=== PATIENT | male | born 1955 | race Caucasian/White ===

== ENCOUNTER 2018-07-30 10:10 | Inpatient (IN) ==
[2018-07-30] MEDS ORDERED: methylPREDNISolone SOD SUC 125 MG/2 ML VIAL IV STA (10:38)
[2018-07-30] MEDS ORDERED: FUROSEMIDE 100 MG/10 ML VIAL IV STA (10:38)
[2018-07-30] MEDS ORDERED: ONDANSETRON 4 MG/2 ML VIAL IV STA (10:38)
[2018-07-30] MEDS ORDERED: ALBUTEROL NEB SOLN 5 MG/ML 20 ML/BOTTLE RESP TX SCH (11:00)
[2018-07-30] MEDS: NITROGLYCERIN 2% OINT 1 INCH/GM PACK TOP STA ×2 (11:09→15:39)
[2018-07-30 11:12] LABS: Basophils % 0.4 % (0.0-0.8); Eosinophils % 0.3 % (0.00-10.9); Hemoglobin 11.1 GM/DL (14.0-18.0); Immature Granulocytes % 0.7 %; Immature Granulocytes Absolute 0.05 #; Lymphocytes # 0.6 10*3/uL (1.4-4.0); Mean Corpuscular HGB Conc 35.8 GM/DL (32-36); Mean Corpuscular Hemoglobin 37 PG (27-34); Mean Corpuscular Volume 103.3 FL (87-102); Monocytes # 0.4 10*3/uL (0.11-0.8); Monocytes % 4.9 % (1.7-12.7); Neutrophils % 84.7 % (38.7-73.9); Platelet Count 177 T/CUMM (130-400); Red Cell Distribution Width 16.8 % (9.3-17.3); White Blood Count 7.1 T/CUMM (4-12)
[2018-07-30 11:24] LABS: PT Patient Result 10.7 SECS
[2018-07-30 11:38] LABS: Alanine Aminotransferase 11 U/L (16-61); Albumin 2.4 G/DL (3.4-5.0); Alkaline Phosphatase 88 U/L (45-117); Aspartate Amino Transferase 41 U/L (0-37); Blood Urea Nitrogen 31 MG/DL (7-18); Calcium 8.3 MG/DL (8.5-10.1); Glucose 100 MG/DL (74-106); Osmolality,Calculated 263.1 MOS/KG (273-304); Potassium 3.6 MMOL/L (3.5-5.1); Sodium 128 MMOL/L (136-145); Total Protein 6.7 G/DL (6.4-8.3); Troponin I < 0.015 NG/ML (0.00-0.045)
[2018-07-30] MEDS ORDERED: ACETAMINOPHEN 325 MG TABLET PO PRN (12:25)
[2018-07-30] MEDS ORDERED: DOCUSATE SODIUM 100 MG CAPSULE PO PRN (12:25)
[2018-07-30] MEDS ORDERED: ONDANSETRON 4 MG/2 ML VIAL IV PRN (12:25)
[2018-07-30] MEDS ORDERED: diphenhydrAMINE CAP 25 MG CAPSULE PO PRN (12:25)
[2018-07-30] MEDS ORDERED: SODIUM CHLORIDE 0.9% 1,000 ML IV SCH (14:30)
[2018-07-30] MEDS ORDERED: INFLUENZA VIRUS VACCINE 0.5 ML SYRINGE IM ONE (15:18)
[2018-07-30 15:38] LABS: Ammonia 38 UMOL/L (11-32)
[2018-07-30] MEDS: FOLIC ACID INJ 1 MG in SYRINGE 1 EACH IV SCH (16:24)
[2018-07-30] MEDS: THIAMINE 200 MG/2 ML VIAL IV SCH (16:25)
[2018-07-30] MEDS: MULTIVITAMIN (CENTRUM) TABLET PO SCH (16:25)
[2018-07-30] MEDS: PANTOPRAZOLE 40 MG TABLET PO SCH (16:25)
[2018-07-30] MEDS: FUROSEMIDE 40 MG/4 ML VIAL IV SCH (18:02)
[2018-07-30 20:37] LABS: Apearance,Urine CLEAR (Clear); Bilirubin,Urine Negative (Negative); Blood, Urine Negative (Negative); Glucose,Urine (UA) Negative (Negative); Ketones,Urine Negative (Negative); Mucus,Urine Occasional /LPF (Occasional); Nitrite,Urine Negative (Negative); Protein,Urine Negative; RBC,Urine <1 /HPF (0-4); Urine Color Yellow (Yellow); Urine Specific Gravity 1.004 (1.001-1.035); Urine Urobilinogen < 2.0 EU/DL (0.2-1.0); WBC,Urine <1 /HPF (0-6)
[2018-07-30] MEDS: ENOXAPARIN 40 MG/0.4 ML SYRINGE SUBCUT SCH (21:34)
[2018-07-30 22:14] LABS: Barbiturates Screen,Urine Negative (Negative); Benzodiazepines Screen,Urine Negative (Negative); Cannabinoid Screen,Urine Negative (Negative); Opiate Screen,Urine Negative (Negative); Phencyclidine Screen,Urine Negative (Negative)
[2018-07-31] MEDS ORDERED: LORazepam 2 MG/1 ML VIAL IV ONE (03:15)
[2018-07-31] MEDS: FUROSEMIDE 40 MG/4 ML VIAL IV SCH ×3 (03:22→21:09)
[2018-07-31 05:43] LABS: Basophils % 0.2 % (0.0-0.8); Hematocrit 24.8 VOL% (42.0-52.0); Hemoglobin 8.5 GM/DL (14.0-18.0); Immature Granulocytes Absolute 0.13 #; Mean Corpuscular HGB Conc 34.3 GM/DL (32-36); Mean Corpuscular Hemoglobin 35 PG (27-34); Mean Corpuscular Volume 103.3 FL (87-102); Mean Platelet Volume 9.5 FL (9.6-12.0); Monocytes # 0.6 10*3/uL (0.11-0.8); Monocytes % 4.7 % (1.7-12.7); Neutrophils # 11.1 10*3/uL (1.4-7.4); Neutrophils % 86.1 % (38.7-73.9); Platelet Count 216 T/CUMM (130-400); White Blood Count 12.9 T/CUMM (4-12)
[2018-07-31 06:27] LABS: Albumin 2.5 G/DL (3.4-5.0); Bilirubin,Total 1.7 MG/DL (0.2-1.0); Calcium 8.5 MG/DL (8.5-10.1); Osmolality,Calculated 263.2 MOS/KG (273-304); Potassium 3.6 MMOL/L (3.5-5.1); Risk Ratio 2.67; Thyroid Stimulating Hormone 6.42 uIU/ml (0.358-3.74); Total Protein 6.7 G/DL (6.4-8.3); VLDL CHOLESTEROL 14.8 MG/DL
[2018-07-31 08:33] LABS: Free T4 (Free Thyroxine) 0.94 NG/DL (0.76-1.46)
[2018-07-31] MEDS: MULTIVITAMIN (CENTRUM) TABLET PO SCH (08:49)
[2018-07-31] MEDS: THIAMINE 200 MG/2 ML VIAL IV SCH (08:49)
[2018-07-31] MEDS: LACTULOSE 20 GM/30 ML UDCUP PO SCH (08:50)
[2018-07-31] MEDS: PANTOPRAZOLE 40 MG TABLET PO SCH ×2 (08:50→20:21)
[2018-07-31] MEDS: FOLIC ACID INJ 1 MG in SYRINGE 1 EACH IV SCH (09:46)
[2018-07-31 12:06] LABS: Hepatitis B Core IgM Quant 0.14 Index; Hepatitis B Core IgM Result Negative (Negative); Hepatitis B Surface Ag Quant 0.22 Index; Hepatitis B Surface Ag Result Negative (Negative); Hepatitis C Virus Ab Result Negative (Negative)
[2018-07-31] MEDS: BACITRACIN OINT 0.9 GM PACK TOP SCH (15:58)
[2018-07-31] MEDS ORDERED: FUROSEMIDE 20 MG/2 ML VIAL IV PRN (16:03)
[2018-07-31] MEDS ORDERED: SODIUM CHLORIDE 0.9% 1,000 ML IV PRN (16:03)
[2018-07-31] MEDS: POLYETHYLENE GLYCOL POWDER 17 GM PACK PO SCH (20:21)
[2018-07-31] MEDS: ENOXAPARIN 40 MG/0.4 ML SYRINGE SUBCUT SCH (20:21)
[2018-08-01 05:41] LABS: Basophils % 0.1 % (0.0-0.8); Eosinophils # 0.1 10*3/uL (0.0-0.87); Eosinophils % 0.8 % (0.00-10.9); Hematocrit 30.4 VOL% (42.0-52.0); Hemoglobin 10.1 GM/DL (14.0-18.0); Immature Granulocytes Absolute 0.07 #; Lymphocytes # 1.8 10*3/uL (1.4-4.0); Lymphocytes % 24.7 % (21.2-54.2); Mean Corpuscular HGB Conc 33.2 GM/DL (32-36); Mean Corpuscular Hemoglobin 34 PG (27-34); Mean Corpuscular Volume 101.3 FL (87-102); Mean Platelet Volume 8.9 FL (9.6-12.0); Monocytes # 0.4 10*3/uL (0.11-0.8); Monocytes % 4.8 % (1.7-12.7); Neutrophils % 68.6 % (38.7-73.9); Platelet Count 201 T/CUMM (130-400); Red Cell Distribution Width 19.2 % (9.3-17.3); White Blood Count 7.3 T/CUMM (4-12)
[2018-08-01] MEDS: LEVOTHYROXINE 75 MCG TABLET PO SCH (06:13)
[2018-08-01] MEDS: FUROSEMIDE 40 MG/4 ML VIAL IV SCH ×3 (06:17→20:47)
[2018-08-01 07:00] LABS: Calcium 8.6 MG/DL (8.5-10.1)
[2018-08-01 07:01] LABS: Albumin 2.4 G/DL (3.4-5.0); Bilirubin,Total 1.7 MG/DL (0.2-1.0); Potassium 3.5 MMOL/L (3.5-5.1); Total Protein 6.4 G/DL (6.4-8.3)
[2018-08-01] MEDS: BACITRACIN OINT 0.9 GM PACK TOP SCH (09:48)
[2018-08-01] MEDS ORDERED: LIDOCAINE 100 MG/5 ML SYRINGE ONE (10:00)
[2018-08-01] MEDS ORDERED: PROPOFOL 200 MG/20 ML VIAL IV ONE (10:00)
[2018-08-01] MEDS: MULTIVITAMIN (CENTRUM) TABLET PO SCH (14:20)
[2018-08-01] MEDS: THIAMINE 100 MG TABLET PO SCH (14:20)
[2018-08-01] MEDS: FOLIC ACID 1 MG TABLET PO SCH (14:20)
[2018-08-01] MEDS: POLYETHYLENE GLYCOL POWDER 17 GM PACK PO SCH ×2 (14:20→20:49)
[2018-08-01] MEDS: PANTOPRAZOLE 40 MG TABLET PO SCH ×2 (14:20→20:46)
[2018-08-01] MEDS: BISACODYL 5 MG TABLET PO SCH ×2 (15:24→23:12)
[2018-08-01] MEDS ORDERED: POLYETHYLENE GLYCOL POWDER 255 GM BOTTLE PO ONE (18:00)
[2018-08-01] MEDS: guaiFENesin/DM ER 600-30 MG TABLET PO PRN (20:46)
[2018-08-01] MEDS: LORazepam 1 MG TABLET PO PRN (20:46)
[2018-08-01] MEDS: ENOXAPARIN 40 MG/0.4 ML SYRINGE SUBCUT SCH (20:46)
[2018-08-01] MEDS ORDERED: MAGNESIUM CITRATE 300 ML BOTTLE PO ONE (21:00)
[2018-08-02] MEDS: FUROSEMIDE 40 MG/4 ML VIAL IV SCH ×2 (05:56→16:03)
[2018-08-02] MEDS: LEVOTHYROXINE 75 MCG TABLET PO SCH (05:56)
[2018-08-02 06:17] LABS: Basophils % 0.3 % (0.0-0.8); Eosinophils % 0.7 % (0.00-10.9); Hematocrit 30.4 VOL% (42.0-52.0); Hemoglobin 10.4 GM/DL (14.0-18.0); Immature Granulocytes % 0.9 %; Immature Granulocytes Absolute 0.05 #; Lymphocytes # 1.6 10*3/uL (1.4-4.0); Lymphocytes % 26.6 % (21.2-54.2); Mean Corpuscular HGB Conc 34.2 GM/DL (32-36); Mean Corpuscular Hemoglobin 35 PG (27-34); Mean Corpuscular Volume 102.7 FL (87-102); Monocytes # 0.4 10*3/uL (0.11-0.8); Monocytes % 7.5 % (1.7-12.7); Neutrophils # 3.8 10*3/uL (1.4-7.4); Platelet Count 195 T/CUMM (130-400); Red Blood Count 2.96 MC/CUMM (3.8-5.5); Red Cell Distribution Width 19.4 % (9.3-17.3); White Blood Count 5.9 T/CUMM (4-12)
[2018-08-02 06:39] LABS: Calcium 8.8 MG/DL (8.5-10.1); Potassium 2.9 MMOL/L (3.5-5.1)
[2018-08-02] MEDS: BISACODYL 5 MG TABLET PO SCH (07:34)
[2018-08-02] MEDS: BACITRACIN OINT 0.9 GM PACK TOP SCH (09:09)
[2018-08-02] MEDS: POTASSIUM CHLORIDE RIDER 10 MEQ in PREMIX 1 EACH IV SCH ×4 (09:09→13:05)
[2018-08-02] MEDS: PANTOPRAZOLE 40 MG TABLET PO SCH ×2 (11:08→20:43)
[2018-08-02] MEDS: THIAMINE 100 MG TABLET PO SCH (11:08)
[2018-08-02] MEDS: MULTIVITAMIN (CENTRUM) TABLET PO SCH (11:09)
[2018-08-02] MEDS: POLYETHYLENE GLYCOL POWDER 17 GM PACK PO SCH ×2 (11:09→20:45)
[2018-08-02] MEDS: FOLIC ACID 1 MG TABLET PO SCH (11:09)
[2018-08-02] MEDS ORDERED: POTASSIUM CHLORIDE 20 MEQ PACK PO ONE (13:20)
[2018-08-02] MEDS ORDERED: LIDOCAINE 100 MG/5 ML SYRINGE ONE (17:18)
[2018-08-02] MEDS ORDERED: PROPOFOL 200 MG/20 ML VIAL IV ONE ×2 (17:18→18:05)
[2018-08-02] MEDS ORDERED: ONDANSETRON 4 MG/2 ML VIAL ONE (18:13)
[2018-08-02] MEDS: guaiFENesin/DM ER 600-30 MG TABLET PO PRN (20:42)
[2018-08-02] MEDS: LORazepam 1 MG TABLET PO PRN (20:43)
[2018-08-02] MEDS: ENOXAPARIN 40 MG/0.4 ML SYRINGE SUBCUT SCH (20:45)
[2018-08-03 05:14] LABS: Basophils % 0.2 % (0.0-0.8); Eosinophils # 0.1 10*3/uL (0.0-0.87); Eosinophils % 1.5 % (0.00-10.9); Hematocrit 30.2 VOL% (42.0-52.0); Immature Granulocytes % 1.3 %; Immature Granulocytes Absolute 0.06 #; Lymphocytes # 1.1 10*3/uL (1.4-4.0); Lymphocytes % 22.2 % (21.2-54.2); Mean Corpuscular HGB Conc 33.1 GM/DL (32-36); Mean Corpuscular Hemoglobin 35 PG (27-34); Mean Corpuscular Volume 104.9 FL (87-102); Mean Platelet Volume 8.7 FL (9.6-12.0); Monocytes # 0.3 10*3/uL (0.11-0.8); Monocytes % 7.2 % (1.7-12.7); Neutrophils # 3.2 10*3/uL (1.4-7.4); Neutrophils % 67.6 % (38.7-73.9); Platelet Count 193 T/CUMM (130-400); Red Blood Count 2.88 MC/CUMM (3.8-5.5); Red Cell Distribution Width 19.4 % (9.3-17.3); White Blood Count 4.7 T/CUMM (4-12)
[2018-08-03] MEDS: LEVOTHYROXINE 75 MCG TABLET PO SCH (05:35)
[2018-08-03 05:43] LABS: Calcium 8.2 MG/DL (8.5-10.1); Osmolality,Calculated 278.5 MOS/KG (273-304); Potassium 3.2 MMOL/L (3.5-5.1)
[2018-08-03] MEDS: FUROSEMIDE 40 MG/4 ML VIAL IV SCH ×2 (09:07→16:50)
[2018-08-03] MEDS: PANTOPRAZOLE 40 MG TABLET PO SCH ×2 (09:09→23:25)
[2018-08-03] MEDS: FOLIC ACID 1 MG TABLET PO SCH (09:09)
[2018-08-03] MEDS: MULTIVITAMIN (CENTRUM) TABLET PO SCH (09:09)
[2018-08-03] MEDS: POTASSIUM CHLORIDE 20 MEQ TABLET PO SCH (09:09)
[2018-08-03] MEDS: THIAMINE 100 MG TABLET PO SCH (09:09)
[2018-08-03] MEDS: BACITRACIN OINT 0.9 GM PACK TOP SCH (09:10)
[2018-08-03] MEDS: POLYETHYLENE GLYCOL POWDER 17 GM PACK PO SCH ×2 (09:10→23:25)
[2018-08-03] MEDS ORDERED: ALTEPLASE 2 MG VIAL ONE (10:26)
[2018-08-03] MEDS: CLINDAMYCIN INJ 600 MG in PREMIX 1 EACH IV SCH ×2 (12:43→23:24)
[2018-08-03] MEDS: cefTRIAXone 1,000 MG in SYRINGE 1 EACH IV SCH (12:44)
[2018-08-03] MEDS ORDERED: ALTEPLASE 5 MG in SYRINGE 1 EACH INTRAPLEUR ONE (14:00)
[2018-08-03] MEDS: LORazepam 1 MG TABLET PO PRN ×2 (16:53→23:25)
[2018-08-03] MEDS: chlordiazePOXIDE 25 MG CAPSULE PO SCH ×2 (18:33→23:32)
[2018-08-03] MEDS: ENOXAPARIN 40 MG/0.4 ML SYRINGE SUBCUT SCH (23:24)
[2018-08-03] MEDS: guaiFENesin/DM ER 600-30 MG TABLET PO PRN (23:25)
[2018-08-04] MEDS: CLINDAMYCIN INJ 600 MG in PREMIX 1 EACH IV SCH ×2 (05:57→14:44)
[2018-08-04] MEDS: chlordiazePOXIDE 25 MG CAPSULE PO SCH ×2 (06:00→12:10)
[2018-08-04 06:26] LABS: Basophils % 0.2 % (0.0-0.8); Eosinophils # 0.1 10*3/uL (0.0-0.87); Eosinophils % 1.3 % (0.00-10.9); Hematocrit 27.5 VOL% (42.0-52.0); Immature Granulocytes % 0.6 %; Immature Granulocytes Absolute 0.03 #; Lymphocytes # 1.3 10*3/uL (1.4-4.0); Lymphocytes % 24.3 % (21.2-54.2); Mean Corpuscular HGB Conc 32.7 GM/DL (32-36); Mean Corpuscular Hemoglobin 35 PG (27-34); Mean Corpuscular Volume 105.4 FL (87-102); Monocytes # 0.4 10*3/uL (0.11-0.8); Monocytes % 7.5 % (1.7-12.7); Neutrophils # 3.5 10*3/uL (1.4-7.4); Neutrophils % 66.1 % (38.7-73.9); Platelet Count 185 T/CUMM (130-400); Red Blood Count 2.61 MC/CUMM (3.8-5.5); Red Cell Distribution Width 18.6 % (9.3-17.3); White Blood Count 5.3 T/CUMM (4-12)
[2018-08-04 06:38] LABS: RBC,Pleural Fluid > 100000 T/CUMM
[2018-08-04 06:46] LABS: Calcium 7.8 MG/DL (8.5-10.1); Potassium 3.1 MMOL/L (3.5-5.1)
[2018-08-04] MEDS ORDERED: HALOPERIDOL 5 MG/ML AMP IV PRN (08:28)
[2018-08-04] MEDS: MULTIVITAMIN (CENTRUM) TABLET PO SCH (10:05)
[2018-08-04] MEDS: LEVOTHYROXINE 75 MCG TABLET PO SCH (10:05)
[2018-08-04] MEDS: FOLIC ACID 1 MG TABLET PO SCH (10:05)
[2018-08-04] MEDS: THIAMINE 100 MG TABLET PO SCH (10:05)
[2018-08-04] MEDS: LACTULOSE 20 GM/30 ML UDCUP PO SCH (10:06)
[2018-08-04] MEDS: POLYETHYLENE GLYCOL POWDER 17 GM PACK PO SCH (10:06)
[2018-08-04] MEDS: POTASSIUM CHLORIDE 20 MEQ TABLET PO SCH (10:06)
[2018-08-04] MEDS: PANTOPRAZOLE 40 MG TABLET PO SCH (10:06)
[2018-08-04] MEDS: FUROSEMIDE 40 MG/4 ML VIAL IV SCH ×2 (10:09→17:31)
[2018-08-04] MEDS: BACITRACIN OINT 0.9 GM PACK TOP SCH (10:09)
[2018-08-04] MEDS: cefTRIAXone 1,000 MG in SYRINGE 1 EACH IV SCH (10:13)
[2018-08-04] MEDS: POTASSIUM CHLORIDE RIDER 10 MEQ in PREMIX 1 EACH IV PRN ×2 (10:19→12:51)
[2018-08-04 16:15] VITALS: BP 134/80
== END 2018-08-04 17:32 | disposition left against medical advice (07) | DRG 190 ==
LOC: N.ED 10:10 → N.EDINP 12:26 → SUATTDRO 12:26 → N.2E 12:56
PROVIDERS: ADMIT Internal Medicine; ATTEND Internal Medicine